=== PATIENT | male | born 1945 | race Caucasian/White ===

== ENCOUNTER 2016-05-06 06:37 | Inpatient (IN) | payer OTHER, MEDICARE ==
[~2016-05-06] VITALS: Ht 177.8 cm; Wt 83.3 kg
[~2016-05-06 06:37] MED LIST: ANTIHISTAMINE25 M2 PO; COUMADIN,JANTOVE5 MG PO; COUMADIN4 MG PO; CYCLOBENZAPRINE10 M1 PO; FISH OIL; FISH OIL 1,0001 EA10 PO; FLAX OIL1000 MG PO; HYDROXYCHLOROQ200 MG PO; IPRATR-ALBUTEROL3 ML IH; IRON325 MG PO; LIORESAL10 MG PO; NAPROXEN500 MG PO; NORVASC10 MG PO; NORVASC5 MG PO; OSTEO BI-FLEX1 EAC1 PO; PRINIVIL10 MG PO; SOTALOL160 MG PO; SOTALOL80 MG PO; TRAMADOL HCL50 MG PO; TYLENOL WITH C1 EACH PO; TYLOX1 CAPSULE PO; VIT D3; VITAMIN D31000 UNIT PO; ZANTAC150 M1 PO; ZESTORETIC,P1 TABLE1 PO
[2016-05-06 07:55] LABS: INTER. NORMALIZED RATIO 1.2; PROTHROMBIN TIME 12.3 (9.2-11.2)
[2016-05-06 08:01] VITALS: BP 125/74
[2016-05-06 08:07] VITALS: BP 125/74
[2016-05-06 13:08] VITALS: BP 157/77
[2016-05-06 15:32] VITALS: BP 165/88
[2016-05-06 19:46] VITALS: BP 147/73
[2016-05-07 00:20] VITALS: BP 170/79
[2016-05-07 03:27] VITALS: BP 173/81
[2016-05-07 04:32] LABS: HEMATOCRIT 39.5 % (38.0-50.0); MCV 85.5 FL (86-99)
[2016-05-07 08:50] VITALS: BP 155/73
[2016-05-07] MEDS ORDERED: SENNA PLUS TAB1 EACH PO (09:09)
[2016-05-07] MEDS ORDERED: TYLENOL REGULA325 MG PO (09:09)
[2016-05-07] MEDS ORDERED: OXYCODONE HCL5 MG PO (09:10)
[2016-05-07] MEDS ORDERED: CELECOXIB200 MG PO (09:10)
[2016-05-07] MEDS ORDERED: COUMADIN1 MG PO ×2 (09:10→09:15)
[2016-05-07 11:52] VITALS: BP 130/69
[2016-05-07 13:45] LABS: INTER. NORMALIZED RATIO 1.2; PROTHROMBIN TIME 12.3 (9.2-11.2)
== END 2016-05-07 14:30 | DRG 470 ==
LOC: 2SOUTH 06:37 → 3WEST 12:54
PROVIDERS: Orthopaedic Surgery
PROC: 0SRD0J9 Replacement of Left Knee Joint with Synthetic Substitute, Cemented, Open Approach (ICD-10-PCS; principal; 2016-05-06)
DX: M17.12 Unilateral primary osteoarthritis, left knee (principal); Z88.0 Allergy status to penicillin; I48.0 Paroxysmal atrial fibrillation; N18.2 Chronic kidney disease, stage 2 (mild); I12.9 Hypertensive chronic kidney disease with stage 1 through stage 4 chronic kidney disease, or unspecified chronic kidney disease; J44.9 Chronic obstructive pulmonary disease, unspecified; J84.10 Pulmonary fibrosis, unspecified; K21.9 Gastro-esophageal reflux disease without esophagitis; E11.22 Type 2 diabetes mellitus with diabetic chronic kidney disease; E78.5 Hyperlipidemia, unspecified; M06.9 Rheumatoid arthritis, unspecified; Z87.891 Personal history of nicotine dependence
CPT/HCPCS: 85014; 85018; 85610; 94640; 94640 76; 94760; 94799; 99202; C1713; J0131; J0171; J0690; J1100; J1885; J2250; J2405; J2795; J7050; L1820